=== PATIENT | male | born 2000 | race Caucasian/White ===

== ENCOUNTER 2025-06-08 20:19 | Emergency (ER) | payer SELFPAY ==
[2025-06-08] MEDS: Ketorolac 60 MG/2 ML SDV IM ONE (21:16)
== END 2025-06-08 22:25 | disposition home or self-care (01) ==
LOC: MW.ED 20:19
DX: S86.911A Strain of unspecified muscle(s) and tendon(s) at lower leg level, right leg, initial encounter (principal); Z79.899 Other long term (current) drug therapy; W01.198A Fall on same level from slipping, tripping and stumbling with subsequent striking against other object, initial encounter
CPT/HCPCS: 73562; 96372; 99283; J1885; 99282